=== PATIENT | male | born 1945 | race Caucasian/White ===

== ENCOUNTER 2022-02-21 12:11 | Emergency (ER) | payer MEDICARE, SELFPAY ==
--- NOTE | ~2022-02-21 | US_ITS ---
EXAMINATION: US scrotum doppler DATE: 02/21/2022 16:48 INDICATION: Right testicular pain. TECHNIQUE: Grayscale and Doppler ultrasound images of the testes were obtained. COMPARISON: None. FINDINGS: The right testis measures 3.8 x 2.1 x 2.7 cm. The left testis measures 4.3 x 2.1 x 2.9 cm. There is a 6 mm cyst in right testis. Right testis demonstrates heterogeneous hypoechogenicity. There is normal vascular flow to both testes. The right epididymis is normal with normal vascular flow. Th e left epididymis is normal with normal vascular flow. There is no varicocele or hydrocele. IMPRESSION: 1. Hypoechoic right testis, which may be secondary to old orchitis or old infarct. Reviewed, dictated and finalized at location A. IMPRESSION: 1. Hypoechoic right testis, which may be secondary to old orchitis or old infa rct.
--- NOTE | ~2022-02-21 | CT_ITS ---
EXAMINATION: CT abdomen pelvis wo con DATE: 02/21/2022 14:58 INDICATION: Right flank pain. TECHNIQUE: Computed tomography (CT) of the abdomen and pelvis was performed without intravenous contr ast. Automated exposure control and iterative reconstruction technique were employed. The dose-length product was 1550.65 mGy-cm. COMPARISON: None. FINDINGS: The visualized portions of the lung bases demonstrate mild atelectasis. No pleural effusion . The heart size is normal. There are coronary artery calcifications. No pericardial effusion. There is diffuse hepatic steatosis. The gallbladder, spleen, pancreas, adrenal glands, and right kidney are normal. There are cyst in left kidney measuring up to 2.7 cm. The prostate is moderately enlarged. T here is diverticulosis of the colon without evidence of diverticulitis. There are no dilated loops of bowel. The appendix is normal. There are no pathologically enlarged lymph nodes. There is no free in traperitoneal fluid. There is prominent fat in left inguinal canal that may be a hernia. There is mil d thoracolumbar spondylosis. IMPRESSION: 1. No urolithiasis. 2. Diffuse hepatic steatosis. Reviewed, dictated and finalized at location A.
[2022-02-21 12:14] VITALS: BP 116/82; PULSE 99; RESP 18; TEMP 36.6; O2SAT 95
[2022-02-21 12:32] LABS: Basophils Absolute Auto 0.1 K/mm3 (0.0-0.1); Eosinophils Absolute Auto 0.2 K/mm3 (0-0.3); Hematocrit 49.3 % (42.0-52.0); Hemoglobin 17.3 g/dL (14.0-18.0); Immature Granulocyte Absolute 0.04 K/mm3 (0.00-0.031); Immature Granulocyte Percent A 0.4 % (0-0.5); Lymphocytes Absolute Auto 2.09 K/mm3 (0.9-3.2); Lymphocytes Percent Auto 23.4 % (18.3-44.2); Mean Corpuscular HGB Conc 35.1 g/dl (32-36); Mean Corpuscular Hemoglobin 29.9 pg (26-34); Mean Corpuscular Volume 85.3 fl (80-100); Mean Platelet Volume 10.6 fl (7.4-10.4); Monocytes Absolute Auto 0.6 K/mm3 (0.1-0.6); Neutrophils Absolute Auto 5.9 K/mm3 (1.3-6.7); Neutrophils Percent Auto 66.2 % (45.5-73.1); Platelet Count Result 277 k/mm3 (150-375); Red Blood Count 5.78 M/mm3 (4.6-6.20); Red Cell Distribution Width 13.2 % (11.5-14.5); White Blood Count 8.9 K/mm3 (4.5-10.0)
[2022-02-21 12:39] LABS: Appearance Urine Clear (Clear); Bilirubin Urine Negative (Negative); Blood Urine Negative (Negative); Color Urine Yellow (Yellow); Glucose Urine UA Negative (Negative); Ketones Urine Negative (Negative); Leukocyte Esterase Ur Negative LEU/UL (Negative); Nitrate Urine Negative (Negative); Protein Urine Negative (Negative); Specific Grav Ur 1.015 (1.001-1.035); Urobilinogen Urine 0.2 mg/dL (<2.0)
[2022-02-21 12:43] LABS: Add Urine Microscopic? NO
[2022-02-21 12:43] LABS: Alanine Aminotransferase 35 U/L (6-50); Albumin Level 4.7 g/dL (3.5-5.1); Alkaline Phosphatase 64 U/L (38-126); Anion Gap 7 mmol/L (8-16); Aspartate Amino Transferase 29 U/L (17-59); Bilirubin,Total 1.3 mg/dL (0.2-1.3); Blood Urea Nitrogen 16 mg/dL (9-20); Calcium 9.5 mg/dL (8.4-10.2); Carbon Dioxide 25 mmol/L (22-30); Chloride 104 mmol/L (98-107); Estimated CRCL calculation 72 ml/min; Estimated Glomerular Filt Rate > 60; Glucose 165 mg/dL (65-110); Potassium 3.8 mmol/L (3.4-5.0); Sodium 136 mmol/L (137-145)
--- NOTE | 2022-02-21 14:46 | ED.GENADULT ---
HPI - General Adult General Chief complaint: Back Pain/Injury Stated complaint: Right flank pain Time Seen by Provider: 02/21/22 14:24 History of Present Illness HPI narrative: 76-year-old male presenting to the emergency department for evaluation of right flank pain that does radiate down to his right testicle. Patient states he initially developed the right flank pain on Monday. Patient thought he may have a kidney or urinary tract infection so he began drinking a lot of water and cranberry juice. Patient states he still was able to be active and play golf that day. Patient states that the increased activity and movement did not worsen his pain. Patient states he has not noticed any blood in his urine and has no prior history of kidney stones. Patient states he did have some tenderness to the testicle but states that the tenderness is not worsened with palpation. Related Data Allergies Allergy/AdvReac Type Severity Reaction Status Date / Time No Known Allergies Allergy Unverified 02/02/19 12:39 Review of Systems Review of Systems: CONSTITUTIONAL: Denies fever, chills, or sweats. EYES: Denies visual changes, redness, or discharge. ENT: Denies rhinorrhea, congestion, sore throat, or otalgia. CARDIOVASCULAR: Denies chest pain, palpitations, or edema. RESPIRATORY: Denies cough or dyspnea. GASTROINTESTINAL: See HPI GENITOURINARY: See HPI SKIN: Denies rash or itching. MUSCULOSKELETAL: Denies back pain, joint pain, or myalgia. NEUROLOGIC: Denies headache, numbness, or weakness. Exam Narrative: APPEARANCE: Well appearing, no pain, no distress, well-nourished. HEAD: normocephalic, atraumatic. EYES: PERRLA/EOMI, conjunctivae clear. NECK: Supple. No adenopathy, no masses. RESPIRATORY: Airway patent, respirations nonlabored. Clear to auscultation bilaterally, no rales, rhonchi, wheezing. CARDIOVASCULAR: Regular rate and rhythm without murmurs rubs or gallops. ABDOMINAL: Soft, nontender, nondistended, normal bowel sounds Genitourinary: No testicular tenderness to palpation. No scrotal erythema or edema. MUSCULOSKELETAL: Moves all extremities. Strength/ROM intact, No edema, No calf tenderness. NEURO: Alert. Cranial nerves II through XII intact. Grossly intact SKIN: Warm, dry. Normal Color Course Course Emergency Course: CT scan showed no acute abnormality to explain the patient's symptoms. Patient's UA showed no evidence of a urinary tract infection. Patient's ultrasound did show hypoechogenicity of the right testicle suggestive of old infarct or old orchitis. Patient states that he did have some old football injuries when he was younger but never had follow-up for these injuries. Case was discussed with the urologist on-call and they recommended starting the patient on Bactrim and having outpatient follow-up. Patient was left on the results of the work-up and he was comfortable with the plan for discharge and close follow-up. Vital Signs Vital signs: Vital Signs Temperature 97.9 F 02/21/22 12:14 Pulse Rate 99 02/21/22 12:14 Respiratory Rate 18 02/21/22 12:14 Blood Pressure 116/82 02/21/22 12:14 Pulse Oximetry 95 02/21/22 12:14 Oxygen Delivery Room Air 02/21/22 12:14 Temperature 97.9 F 02/21/22 12:14 Pulse Rate 78 02/21/22 18:20 Respiratory Rate 12 02/21/22 18:20 Blood Pressure 143/72 H 02/21/22 18:20 Pulse Oximetry 96 02/21/22 18:20 Oxygen Delivery Room Air 02/21/22 12:14 Medical Decision Making Vital Signs Vital Signs: Vital Signs Temperature 97.9 F 02/21/22 12:14 Pulse Rate 99 02/21/22 12:14 Respiratory Rate 18 02/21/22 12:14 Blood Pressure 116/82 02/21/22 12:14 Pulse Oximetry 95 02/21/22 12:14 Oxygen Delivery Room Air 02/21/22 12:14 Temperature 97.9 F 02/21/22 12:14 Pulse Rate 78 02/21/22 18:20 Respiratory Rate 12 02/21/22 18:20 Blood Pressure 143/72 H 02/21/22 18:20 Pulse Oximetry 96 02/21/22 18:20 Oxygen Delivery Room Air
[2022-02-21 15:36] VITALS: BP 143/85; PULSE 78; RESP 16; O2SAT 100
[2022-02-21 18:20] VITALS: BP 143/72; PULSE 78; RESP 12; O2SAT 96
== END 2022-02-21 18:25 | disposition home or self-care (01) ==
PROVIDERS: Emergency Provider Emergency Medicine; PCP Internal Medicine
DX: R10.9 Unspecified abdominal pain (principal); N44.2 Benign cyst of testis; K76.0 Fatty (change of) liver, not elsewhere classified; N50.811 Right testicular pain
CPT/HCPCS: 36415; 74176; 76870; 80053; 81003; 85025; 93976; 99284; A9270